=== PATIENT | male | born 1990 | race Caucasian/White ===

== ENCOUNTER 2018-03-26 13:47 | Emergency (ER) | payer MEDICAID, OTHER ==
[2018-03-26] MEDS: NS 1,000 ML IV ×2 (15:09)
[2018-03-26] MEDS: GASTROGRAFIN SOLUTION 30ML PO ×4 (15:13→15:18)
[2018-03-26 15:25] LABS: BASO # 0.1 10^3/uL (0.0-0.2); BASO % 0.4 % (0.0-1.0); EOS # 0.1 10^3/uL (0.0-0.50); EOS % 0.8 % (0.0-3.0); HEMATOCRIT 42.9 % (42.0-52.0); HEMOGLOBIN 14.4 g/dl (13.5-17.5); IMMATURE GRANULOCYTE % 0.3 % (0-3.0); LYMPH # 1.1 10^3/uL (1.5-6.5); LYMPH % 8.2 % (24.0-44.0); MEAN CORPUSCULAR HEMOGLOBIN 30.1 pg (27.0-33.0); MEAN CORPUSCULAR HGB CONC 33.6 g/dl (32.0-36.5); MEAN CORPUSCULAR VOLUME 89.6 fl (80.0-96.0); MONO # 0.8 10^3/uL (0.0-0.8); MONO % 5.4 % (0.0-5.0); NEUTROPHILS # 11.8 10^3/uL (1.8-7.7); NEUTROPHILS % 84.9 % (36.0-66.0); PLATELET COUNT, AUTOMATED 285 10^3/uL (150-450); RED BLOOD COUNT 4.79 10^6/uL (4.30-6.10); RED CELL DISTRIBUTION WIDTH 11.3 % (11.5-14.5); WHITE BLOOD COUNT 13.9 10^3/uL (4.0-10.0)
[2018-03-26 15:31] LABS: KETONE, URINE AUTO RFX TRACE mg/dL (NEGATIVE); LEUKOCYTE ESTERASE UR AUTO RFX NEGATIVE (NEGATIVE); MUCUS, URINE RFX LARGE (NEGATIVE); NITRITE, URINE AUTO RFX NEGATIVE (NEGATIVE); RBC, URINE AUTO RFX 1 /HPF (0-3); SQUAM EPITHELIAL CELL UR AURFX 2 /HPF (0-6); WBC, URINE AUTO RFX 3 /HPF (0-3)
[2018-03-26] MEDS ORDERED: ISOVUE-370 76% 100ML VIAL (Q9967) As Ordered ×2 (15:45)
[2018-03-26 15:50] LABS: ALBUMIN 4.4 GM/DL (3.2-5.2); ALBUMIN/GLOBULIN RATIO 1.07 (1.00-1.93); ALKALINE PHOSPHATASE 65 U/L (45-117); ALT/SGPT 47 U/L (12-78); AMYLASE 74 U/L (25-115); ANION GAP 7 MEQ/L (8-16); AST/SGOT 16 U/L (7-37); BILIRUBIN,DIRECT 0.1 MG/DL (0.0-0.2); BILIRUBIN,TOTAL 0.5 MG/DL (0.2-1.0); BLOOD UREA NITROGEN 16 MG/DL (7-18); CALCIUM LEVEL 9.5 MG/DL (8.5-10.1); CARBON DIOXIDE LEVEL 26 MEQ/L (21-32); CHLORIDE LEVEL 105 MEQ/L (98-107); CREATININE FOR GFR 0.97 MG/DL (0.70-1.30); GLOMERULAR FILTRATION RATE > 60.0 (>60); GLUCOSE, FASTING 93 MG/DL (70-100); LIPASE 111 U/L (73-393); POTASSIUM SERUM 3.9 MEQ/L (3.5-5.1); SODIUM LEVEL 138 MEQ/L (136-145); TOTAL PROTEIN 8.5 GM/DL (6.4-8.2)
== END 2018-03-26 18:41 | disposition home or self-care (01) ==
LOC: M ED 13:47
DX: K59.00 Constipation, unspecified (principal); F31.9 Bipolar disorder, unspecified; F90.9 Attention-deficit hyperactivity disorder, unspecified type; Z79.899 Other long term (current) drug therapy
CPT/HCPCS: Q9963

== ENCOUNTER 2018-04-05 15:34 | Inpatient (IN) | payer OTHER, MEDICAID, SELFPAY ==
[2018-04-05 17:00] LABS: APPEARANCE, URINE CLEAR (CLEAR); BACTERIA, URINE AUTO NEGATIVE (NEGATIVE); BILIRUBIN, URINE AUTO NEGATIVE (NEGATIVE); BLOOD, URINE BLOOD NEGATIVE (NEGATIVE); COLOR, URINE YELLOW (YELLOW); GLUCOSE, URINE (UA) AUTO NEGATIVE (NEGATIVE); KETONE, URINE AUTO 1+ mg/dL (NEGATIVE); LEUKOCYTE ESTERASE, URINE AUTO NEGATIVE (NEGATIVE); MUCUS, URINE SMALL (NEGATIVE); NITRITE, URINE AUTO NEGATIVE (NEGATIVE); PROTEIN, URINE AUTO NEGATIVE (NEGATIVE); RBC, URINE AUTO 1 /HPF (0-3); SPECIFIC GRAVITY URINE AUTO 1.009 (1.002-1.035); SQUAMOUS EPITHELIAL CELL UR AU 0 /HPF (0-6); UROBILINOGEN, URINE AUTO 0.2 mg/dL (0.0-2.0); WBC, URINE AUTO 1 /HPF (0-3)
[2018-04-05 17:07] LABS: ALBUMIN 4.2 GM/DL (3.2-5.2); ALBUMIN/GLOBULIN RATIO 1.14 (1.00-1.93); ALKALINE PHOSPHATASE 50 U/L (45-117); ALT/SGPT 37 U/L (12-78); ANION GAP 10 MEQ/L (8-16); AST/SGOT 33 U/L (7-37); BILIRUBIN,DIRECT < 0.1 MG/DL (0.0-0.2); BILIRUBIN,TOTAL 0.6 MG/DL (0.2-1.0); BLOOD UREA NITROGEN 6 MG/DL (7-18); CALCIUM LEVEL 9.3 MG/DL (8.5-10.1); CARBON DIOXIDE LEVEL 21 MEQ/L (21-32); CHLORIDE LEVEL 108 MEQ/L (98-107); CPK CREATINE PHOSPHOKINASE 88 U/L (39-308); CREATININE FOR GFR 0.79 MG/DL (0.70-1.30); GLOMERULAR FILTRATION RATE > 60.0 (>60); GLUCOSE, FASTING 110 MG/DL (70-100); POTASSIUM SERUM 4.5 MEQ/L (3.5-5.1); SALICYLATE LEVEL < 1.7 MG/DL (5.0-30.0); SODIUM LEVEL 139 MEQ/L (136-145); TOTAL PROTEIN 7.9 GM/DL (6.4-8.2); TROPONIN I < 0.02 NG/ML (< 0.10)
[2018-04-05 17:09] LABS: AMPHETAMINES LEVEL URINE NEGATIVE (NEGATIVE); BARBITURATES URINE NEGATIVE (NEGATIVE); BENZODIAZEPINES URINE NEGATIVE (NEGATIVE); CANNABINOIDS URINE NEGATIVE (NEGATIVE); COCAINE METABOLITE URINE NEGATIVE (NEGATIVE); METHADONE URINE NEGATIVE (NEGATIVE); OPIATES URINE NEGATIVE (NEGATIVE); PHENCYCLIDINE URINE NEGATIVE (NEGATIVE)
[2018-04-05 17:13] LABS: CK-MB VALUE MASS < 1.0 NG/ML (<3.6); MB/CK RELATIVE INDEX 1.13 (< OR =4)
[2018-04-05 17:16] LABS: ACETAMINOPHEN LEVEL < 2.0 UG/ML (10.0-30.0); ETHYL ALCOHOL (ETHANOL) < 0.003 % (0.000-0.010)
[2018-04-05 17:24] LABS: BASO % 0.4 % (0.0-1.0); EOS # 0.1 10^3/uL (0.0-0.50); EOS % 0.9 % (0.0-3.0); HEMATOCRIT 39.5 % (42.0-52.0); HEMOGLOBIN 13.3 g/dl (13.5-17.5); IMMATURE GRANULOCYTE % 0.6 % (0-3.0); LYMPH # 1.1 10^3/uL (1.5-6.5); LYMPH % 11.8 % (24.0-44.0); MEAN CORPUSCULAR HEMOGLOBIN 30.4 pg (27.0-33.0); MEAN CORPUSCULAR HGB CONC 33.7 g/dl (32.0-36.5); MEAN CORPUSCULAR VOLUME 90.2 fl (80.0-96.0); MONO # 0.5 10^3/uL (0.0-0.8); MONO % 5.4 % (0.0-5.0); NEUTROPHILS # 7.3 10^3/uL (1.8-7.7); NEUTROPHILS % 80.9 % (36.0-66.0); PLATELET COUNT, AUTOMATED 338 10^3/uL (150-450); RED BLOOD COUNT 4.38 10^6/uL (4.30-6.10); RED CELL DISTRIBUTION WIDTH 11.7 % (11.5-14.5); WHITE BLOOD COUNT 9.1 10^3/uL (4.0-10.0)
[2018-04-05] MEDS: NS 1,000 ML IV (17:49)
[2018-04-05 18:11] LABS: LITHIUM LEVEL 0.46 MEQ/L (0.60-1.20)
[2018-04-06] MEDS: LITHIUM CARBONATE 450 MG **CR** TAB PO ×2 (08:29→21:00)
[2018-04-06] MEDS ORDERED: LITHIUM CARBONATE 150 MG CAP PO (09:00)
[2018-04-06] MEDS: SPIRONOLACTONE 50 MG TAB PO ×2 (11:05→21:00)
[2018-04-06] MEDS: OLANZapine ORAL DISINTEGRATING TAB 5MG PO ×2 (11:21→21:00)
[2018-04-06] MEDS: QUEtiapine FUMARATE 50 MG TAB PO (21:00)
[2018-04-06] MEDS: ESCITALOPRAM OXALATE 5MG TABLET (LEXAPRO) PO (21:30)
[2018-04-06] MEDS: FINASTERIDE 5 MG TAB PO (21:30)
[2018-04-06] MEDS: ESTRADIOL 1 MG TAB PO (21:31)
[2018-04-07] MEDS: LITHIUM CARBONATE 450 MG **CR** TAB PO ×2 (09:00→21:09)
[2018-04-07] MEDS: OLANZapine ORAL DISINTEGRATING TAB 5MG PO ×5 (09:00→21:54)
[2018-04-07] MEDS: SPIRONOLACTONE 50 MG TAB PO ×2 (09:14→21:10)
[2018-04-07] MEDS: MAALOX 30 ML SUSP *UDC PO (10:12)
[2018-04-07 10:37] LABS: HEMATOCRIT 40.5 % (42.0-52.0); HEMOGLOBIN 13.8 g/dl (13.5-17.5); MEAN CORPUSCULAR HEMOGLOBIN 30.7 pg (27.0-33.0); MEAN CORPUSCULAR HGB CONC 34.1 g/dl (32.0-36.5); PLATELET COUNT, AUTOMATED 333 10^3/uL (150-450); RED CELL DISTRIBUTION WIDTH 11.8 % (11.5-14.5); WHITE BLOOD COUNT 10.8 10^3/uL (4.0-10.0)
[2018-04-07 11:07] LABS: ALBUMIN 4.2 GM/DL (3.2-5.2); ALBUMIN/GLOBULIN RATIO 1.24 (1.00-1.93); ALKALINE PHOSPHATASE 56 U/L (45-117); ALT/SGPT 59 U/L (12-78); ANION GAP 11 MEQ/L (8-16); AST/SGOT 28 U/L (7-37); BILIRUBIN,TOTAL 0.5 MG/DL (0.2-1.0); BLOOD UREA NITROGEN 8 MG/DL (7-18); CALCIUM LEVEL 9.4 MG/DL (8.5-10.1); CARBON DIOXIDE LEVEL 25 MEQ/L (21-32); CHLORIDE LEVEL 107 MEQ/L (98-107); CREATININE FOR GFR 0.73 MG/DL (0.70-1.30); GLOMERULAR FILTRATION RATE > 60.0 (>60); GLUCOSE, FASTING 90 MG/DL (70-100); POTASSIUM SERUM 3.7 MEQ/L (3.5-5.1); SODIUM LEVEL 143 MEQ/L (136-145); TOTAL PROTEIN 7.6 GM/DL (6.4-8.2)
[2018-04-07 11:09] LABS: CK-MB VALUE MASS < 1.0 NG/ML (<3.6); CPK CREATINE PHOSPHOKINASE 45 U/L (39-308); MB/CK RELATIVE INDEX 2.22 (< OR =4); TROPONIN I < 0.02 NG/ML (< 0.10)
[2018-04-07] MEDS: ESCITALOPRAM OXALATE 5MG TABLET (LEXAPRO) PO (21:08)
[2018-04-07] MEDS: ESTRADIOL 1 MG TAB PO (21:09)
[2018-04-07] MEDS: QUEtiapine FUMARATE 50 MG TAB PO (21:10)
[2018-04-07] MEDS: FINASTERIDE 5 MG TAB PO (21:10)
[2018-04-08] MEDS: ACETAMINOPHEN TAB 650MG DOSE (2X325MG) PO (00:35)
[2018-04-08] MEDS: traZODone 50 MG TAB PO (00:35)
[2018-04-08 07:56] LABS: HEMATOCRIT 40.4 % (42.0-52.0); HEMOGLOBIN 13.3 g/dl (13.5-17.5); MEAN CORPUSCULAR HEMOGLOBIN 29.7 pg (27.0-33.0); MEAN CORPUSCULAR HGB CONC 32.9 g/dl (32.0-36.5); MEAN CORPUSCULAR VOLUME 90.2 fl (80.0-96.0); PLATELET COUNT, AUTOMATED 301 10^3/uL (150-450); RED BLOOD COUNT 4.48 10^6/uL (4.30-6.10); RED CELL DISTRIBUTION WIDTH 11.8 % (11.5-14.5); WHITE BLOOD COUNT 7.5 10^3/uL (4.0-10.0)
[2018-04-08] MEDS: SPIRONOLACTONE 50 MG TAB PO ×2 (09:15→21:33)
[2018-04-08] MEDS: LITHIUM CARBONATE 450 MG **CR** TAB PO ×2 (09:15→21:33)
[2018-04-08] MEDS: OLANZapine ORAL DISINTEGRATING TAB 5MG PO ×4 (09:15→21:33)
[2018-04-08] MEDS: QUEtiapine FUMARATE 50 MG TAB PO (21:33)
[2018-04-08] MEDS: ESCITALOPRAM OXALATE 5MG TABLET (LEXAPRO) PO (21:33)
[2018-04-08] MEDS: FINASTERIDE 5 MG TAB PO (21:33)
[2018-04-08] MEDS: ESTRADIOL 1 MG TAB PO (21:33)
[2018-04-09] MEDS: OLANZapine ORAL DISINTEGRATING TAB 5MG PO ×4 (08:08→21:00)
[2018-04-09] MEDS: LITHIUM CARBONATE 450 MG **CR** TAB PO ×2 (08:08→21:00)
[2018-04-09] MEDS: SPIRONOLACTONE 50 MG TAB PO ×2 (08:09→21:08)
[2018-04-09] MEDS: QUEtiapine FUMARATE 50 MG TAB PO (21:00)
[2018-04-09] MEDS: ESCITALOPRAM OXALATE 5MG TABLET (LEXAPRO) PO (21:00)
[2018-04-09] MEDS: ESTRADIOL 1 MG TAB PO (21:07)
[2018-04-09] MEDS: FINASTERIDE 5 MG TAB PO (21:07)
[2018-04-10] MEDS: OLANZapine ORAL DISINTEGRATING TAB 5MG PO ×5 (09:00→20:24)
[2018-04-10] MEDS: LITHIUM CARBONATE 450 MG **CR** TAB PO ×2 (09:00→20:20)
[2018-04-10] MEDS: SPIRONOLACTONE 50 MG TAB PO ×2 (09:03→20:21)
[2018-04-10] MEDS: ESCITALOPRAM OXALATE 5MG TABLET (LEXAPRO) PO (20:20)
[2018-04-10] MEDS: QUEtiapine FUMARATE 50 MG TAB PO (20:20)
[2018-04-10] MEDS: ESTRADIOL 1 MG TAB PO (20:20)
[2018-04-10] MEDS: FINASTERIDE 5 MG TAB PO (20:21)
[2018-04-11] MEDS: LITHIUM CARBONATE 450 MG **CR** TAB PO ×2 (08:34→20:13)
[2018-04-11] MEDS: SPIRONOLACTONE 50 MG TAB PO ×2 (08:34→20:14)
[2018-04-11] MEDS: OLANZapine ORAL DISINTEGRATING TAB 5MG PO (08:35)
[2018-04-11] MEDS: ESCITALOPRAM OXALATE 10 MG TAB (LEXAPRO) PO (20:12)
[2018-04-11] MEDS: QUEtiapine FUMARATE 50 MG TAB PO (20:13)
[2018-04-11] MEDS: FINASTERIDE 5 MG TAB PO (20:13)
[2018-04-11] MEDS: ESTRADIOL 1 MG TAB PO (20:14)
[2018-04-12 08:13] LABS: LITHIUM LEVEL 0.59 MEQ/L (0.60-1.20)
[2018-04-12] MEDS: LITHIUM CARBONATE 450 MG **CR** TAB PO ×2 (09:19→20:52)
[2018-04-12] MEDS: SPIRONOLACTONE 50 MG TAB PO ×2 (09:20→20:52)
[2018-04-12] MEDS: ESTRADIOL 1 MG TAB PO (20:51)
[2018-04-12] MEDS: FINASTERIDE 5 MG TAB PO (20:52)
[2018-04-12] MEDS: QUEtiapine FUMARATE 50 MG TAB PO (20:52)
[2018-04-12] MEDS: ESCITALOPRAM OXALATE 10 MG TAB (LEXAPRO) PO (20:52)
[2018-04-13] MEDS: SPIRONOLACTONE 50 MG TAB PO ×2 (09:53→20:56)
[2018-04-13] MEDS: LITHIUM CARBONATE 450 MG **CR** TAB PO (09:53)
[2018-04-13] MEDS: ESCITALOPRAM OXALATE 10 MG TAB (LEXAPRO) PO (20:56)
[2018-04-13] MEDS: ESTRADIOL 1 MG TAB PO (20:56)
[2018-04-13] MEDS: LITHIUM CARBONATE 300 MG **CR** TAB PO (20:57)
[2018-04-13] MEDS: QUEtiapine FUMARATE 200 MG TAB PO (20:57)
[2018-04-13] MEDS: FINASTERIDE 5 MG TAB PO (20:57)
[2018-04-13] MEDS: traZODone 50 MG TAB PO (20:57)
[2018-04-14] MEDS: SPIRONOLACTONE 50 MG TAB PO ×2 (08:52→21:01)
[2018-04-14] MEDS: LITHIUM CARBONATE 300 MG **CR** TAB PO ×2 (08:53→21:01)
[2018-04-14 09:18] LABS: LITHIUM LEVEL 0.86 MEQ/L (0.60-1.20)
[2018-04-14] MEDS: ESCITALOPRAM OXALATE 10 MG TAB (LEXAPRO) PO (21:00)
[2018-04-14] MEDS: QUEtiapine FUMARATE 200 MG TAB PO (21:00)
[2018-04-14] MEDS: ESTRADIOL 1 MG TAB PO (21:01)
[2018-04-14] MEDS: FINASTERIDE 5 MG TAB PO (21:01)
[2018-04-15] MEDS: SPIRONOLACTONE 50 MG TAB PO ×2 (08:19→21:19)
[2018-04-15] MEDS: LITHIUM CARBONATE 300 MG **CR** TAB PO ×2 (08:20→21:19)
[2018-04-15] MEDS: TUBERCULIN PPD 5 UNITS/0.1 ML ID (09:04)
[2018-04-15] MEDS: FINASTERIDE 5 MG TAB PO (21:18)
[2018-04-15] MEDS: QUEtiapine FUMARATE 200 MG TAB PO (21:19)
[2018-04-15] MEDS: ESCITALOPRAM OXALATE 10 MG TAB (LEXAPRO) PO (21:19)
[2018-04-15] MEDS: ESTRADIOL 1 MG TAB PO (21:21)
[2018-04-16] MEDS: SPIRONOLACTONE 50 MG TAB PO ×2 (08:27→20:46)
[2018-04-16] MEDS: LITHIUM CARBONATE 300 MG **CR** TAB PO ×2 (08:27→20:47)
[2018-04-16] MEDS: QUEtiapine FUMARATE 200 MG TAB PO (20:46)
[2018-04-16] MEDS: ESTRADIOL 1 MG TAB PO (20:46)
[2018-04-16] MEDS: FINASTERIDE 5 MG TAB PO (20:46)
[2018-04-16] MEDS: ESCITALOPRAM OXALATE 10 MG TAB (LEXAPRO) PO (20:46)
[2018-04-17] MEDS: LITHIUM CARBONATE 300 MG **CR** TAB PO (09:11)
[2018-04-17] MEDS: SPIRONOLACTONE 50 MG TAB PO (09:12)
[2018-04-17] MEDS: MOM 30ML SUSPENSION UDC PO (09:26)
[2018-04-17] MEDS: PPD DOCUMENTATION ENTRY MISC XX (09:27)
== END 2018-04-17 15:00 | disposition home or self-care (01) | DRG 753 ==
LOC: M PSY 04-09 21:33 → M ED 15:34 → M ED INP 21:00
PROVIDERS: Psychiatry & Neurology Psychiatry
DX: F31.5 Bipolar disorder, current episode depressed, severe, with psychotic features (principal); F64.9 Gender identity disorder, unspecified; Z79.899 Other long term (current) drug therapy; R07.9 Chest pain, unspecified

== ENCOUNTER 2018-04-27 04:44 | Emergency (ER) | payer OTHER ==
[2018-04-27 05:13] LABS: HEMOGLOBIN 12.5 g/dl (13.5-17.5); MEAN CORPUSCULAR HEMOGLOBIN 29.9 pg (27.0-33.0); MEAN CORPUSCULAR HGB CONC 32.9 g/dl (32.0-36.5); MEAN CORPUSCULAR VOLUME 90.9 fl (80.0-96.0); PLATELET COUNT, AUTOMATED 281 10^3/uL (150-450); RED BLOOD COUNT 4.18 10^6/uL (4.30-6.10); RED CELL DISTRIBUTION WIDTH 11.6 % (11.5-14.5); WHITE BLOOD COUNT 12.4 10^3/uL (4.0-10.0)
[2018-04-27 05:55] LABS: ACETAMINOPHEN LEVEL < 2.0 UG/ML (10.0-30.0); ALBUMIN 3.9 GM/DL (3.2-5.2); ALBUMIN/GLOBULIN RATIO 1.26 (1.00-1.93); ALKALINE PHOSPHATASE 58 U/L (45-117); ALT/SGPT 85 U/L (12-78); ANION GAP 10 MEQ/L (8-16); AST/SGOT 24 U/L (7-37); BILIRUBIN,DIRECT 0.2 MG/DL (0.0-0.2); BILIRUBIN,TOTAL 0.6 MG/DL (0.2-1.0); BLOOD UREA NITROGEN 12 MG/DL (7-18); CALCIUM LEVEL 8.6 MG/DL (8.5-10.1); CARBON DIOXIDE LEVEL 23 MEQ/L (21-32); CHLORIDE LEVEL 107 MEQ/L (98-107); CREATININE FOR GFR 0.79 MG/DL (0.70-1.30); ETHYL ALCOHOL (ETHANOL) < 0.003 % (0.000-0.010); GLOMERULAR FILTRATION RATE > 60.0 (>60); GLUCOSE, FASTING 130 MG/DL (70-100); LITHIUM LEVEL 0.35 MEQ/L (0.60-1.20); POTASSIUM SERUM 3.7 MEQ/L (3.5-5.1); SALICYLATE LEVEL 1.8 MG/DL (5.0-30.0); SODIUM LEVEL 140 MEQ/L (136-145)
[2018-04-27 08:20] LABS: AMPHETAMINES LEVEL URINE NEGATIVE (NEGATIVE); BARBITURATES URINE NEGATIVE (NEGATIVE); BENZODIAZEPINES URINE NEGATIVE (NEGATIVE); CANNABINOIDS URINE NEGATIVE (NEGATIVE); COCAINE METABOLITE URINE NEGATIVE (NEGATIVE); METHADONE URINE NEGATIVE (NEGATIVE); OPIATES URINE NEGATIVE (NEGATIVE); PHENCYCLIDINE URINE NEGATIVE (NEGATIVE)
== END 2018-04-27 11:00 | disposition home or self-care (01) ==
LOC: M ED 04:44
DX: R46.89 Other symptoms and signs involving appearance and behavior (principal); F31.5 Bipolar disorder, current episode depressed, severe, with psychotic features (principal); F41.9 Anxiety disorder, unspecified; Z79.899 Other long term (current) drug therapy
CPT/HCPCS: 93005

== ENCOUNTER → 2019-09-20 | Outpatient (CLI) | payer OTHER ==
[~2019-09-20] MED LIST: ESCI10TA2; ESCI10TA2 PO; ESTR2TAB2; ESTR2TAB2 PO; FINA5TAB2 PO; LEXA5TAB13 PO; LITH1TAB PO; LITH45TASA; LITH45TASA PO; MIRA3350 PO; QUET100T2; QUET200T2 PO; SERO1TAB PO; SPIR100T3 PO; TRAZ1TAB10 PO
--- NOTE | 2019-09-20 22:24 | ECGEPIP ---
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 No significant change compared with 04/27/2018 Electronically Signed on 09-20-2019 22:24:22 EST by Tj Hatch
== END ==
LOC: M EKG 10:14 → M LAB 10:14
PROVIDERS: ATTEND Nurse Practitioner Psychiatric/Mental Health
DX: F90.0 Attention-deficit hyperactivity disorder, predominantly inattentive type (principal)

== ENCOUNTER → 2021-02-26 | Outpatient (CLI) | payer OTHER ==
[~2021-02-26] MED LIST changes: +ESCI10TA16; +ESCI10TA16 PO; -ESCI10TA2; -ESCI10TA2 PO
[2021-02-26 09:20] LABS: BASO % 0.5 % (0.0-1.0); EOS # 0.2 10^3/uL (0.0-0.5); EOS % 2.4 % (0.0-3.0); HEMATOCRIT 39.1 % (42.0-52.0); HEMOGLOBIN 12.6 g/dl (13.5-17.5); LYMPH # 2.8 10^3/uL (1.5-5.0); LYMPH % 35.6 % (24.0-44.0); MEAN CORPUSCULAR HEMOGLOBIN 29.8 pg (27.0-33.0); MEAN CORPUSCULAR HGB CONC 32.2 g/dl (32.0-36.5); MEAN CORPUSCULAR VOLUME 92.4 fl (80.0-96.0); MONO # 0.7 10^3/uL (0.0-0.8); NEUTROPHILS # 4.1 10^3/uL (1.5-8.5); NEUTROPHILS % 52.1 % (36.0-66.0); PLATELET COUNT, AUTOMATED 294 10^3/uL (150-450); RED BLOOD COUNT 4.23 10^6/uL (4.30-6.10); WHITE BLOOD COUNT 7.9 10^3/uL (4.0-10.0)
[2021-02-26 09:53] LABS: ALBUMIN 3.8 GM/DL (3.2-5.2); ALT/SGPT 36 U/L (12-78); BILIRUBIN,TOTAL 0.7 MG/DL (0.2-1.0); BLOOD UREA NITROGEN 14 MG/DL (7-18); CARBON DIOXIDE LEVEL 26 MEQ/L (21-32); CHLORIDE LEVEL 106 MEQ/L (98-107); CHOLESTEROL LEVEL 195 MG/DL (<200); CHOLESTEROL RISK RATIO 3.545 (<5); CREATININE FOR GFR 0.74 MG/DL (0.70-1.30); GLOMERULAR FILTRATION RATE > 60.0 (>60); GLUCOSE, FASTING 82 MG/DL (70-100); HDL CHOLESTEROL 55 MG/DL (>40); LDL CHOLESTEROL 124 MG/DL (<100); NON-HDL-C 140 MG/DL; POTASSIUM SERUM 4.2 MEQ/L (3.5-5.1); SODIUM LEVEL 139 MEQ/L (136-145); TOTAL PROTEIN 7.2 GM/DL (6.4-8.2); TRIGLYCERIDES LEVEL 78 MG/DL (<150)
[2021-02-26 09:59] LABS: HEMOGLOBIN A1c 5.1 %
== END ==
LOC: M LAB 08:32
PROVIDERS: ATTEND Nurse Practitioner Psychiatric/Mental Health
DX: F25.0 Schizoaffective disorder, bipolar type (principal)

== ENCOUNTER 2021-03-26 12:08 | Emergency (ER) | payer OTHER ==
[~2021-03-26] VITALS: Ht 175.3 cm; Wt 85.2 kg
[2021-03-26] MEDS ORDERED: SPIR100T3 PO ×2 (12:17→21:35)
[2021-03-26] MEDS ORDERED: ZYPR20TA PO (12:17)
[2021-03-26] MEDS ORDERED: ATOM25CA2 PO (12:17)
[2021-03-26] MEDS ORDERED: RITA20TA PO (12:17)
[2021-03-26] MEDS ORDERED: CYMB60CA3 PO ×2 (12:17→21:35)
[2021-03-26] MEDS ORDERED: RITA10TA PO (12:17)
[2021-03-26 13:38] LABS: HEMATOCRIT 39.9 % (42.0-52.0); HEMOGLOBIN 13.1 g/dl (13.5-17.5); MEAN CORPUSCULAR HGB CONC 32.8 g/dl (32.0-36.5); MEAN CORPUSCULAR VOLUME 91.3 fl (80.0-96.0); PLATELET COUNT, AUTOMATED 310 10^3/uL (150-450); RED BLOOD COUNT 4.37 10^6/uL (4.30-6.10)
[2021-03-26 14:12] LABS: ALBUMIN 3.6 GM/DL (3.2-5.2); ALT/SGPT 44 U/L (12-78); BILIRUBIN,DIRECT 0.2 MG/DL (0.0-0.2); BILIRUBIN,TOTAL 0.6 MG/DL (0.2-1.0); BLOOD UREA NITROGEN 12 MG/DL (7-18); CARBON DIOXIDE LEVEL 28 MEQ/L (21-32); CHLORIDE LEVEL 105 MEQ/L (98-107); CREATININE FOR GFR 0.79 MG/DL (0.70-1.30); GLOMERULAR FILTRATION RATE > 60.0 (>60); GLUCOSE, FASTING 111 MG/DL (70-100); POTASSIUM SERUM 3.7 MEQ/L (3.5-5.1); SODIUM LEVEL 137 MEQ/L (136-145); TOTAL PROTEIN 7.4 GM/DL (6.4-8.2)
[2021-03-26 14:13] LABS: ACETAMINOPHEN LEVEL < 2.0 UG/ML (10.0-30.0); ETHYL ALCOHOL (ETHANOL) < 0.003 % (0.000-0.010); SALICYLATE LEVEL < 1.7 MG/DL (5.0-30.0); THYROID STIMULATING HORMONE 0.513 uIU/ML (0.358-3.740)
[2021-03-26 14:32] LABS: AMPHETAMINES LEVEL URINE NEGATIVE (NEGATIVE); BARBITURATES URINE NEGATIVE (NEGATIVE); BENZODIAZEPINES URINE NEGATIVE (NEGATIVE); CANNABINOIDS URINE POSITIVE (NEGATIVE); COCAINE METABOLITE URINE NEGATIVE (NEGATIVE); METHADONE URINE NEGATIVE (NEGATIVE); OPIATES URINE NEGATIVE (NEGATIVE); PHENCYCLIDINE URINE NEGATIVE (NEGATIVE)
--- NOTE | 2021-03-26 16:10 | MHIPNPDOC ---
[facility] Progress Note Progress Note DATE OF SERVICE: 03/26/21 Communicated with PSA, patient meets criteria for inpatient admission. Was presented that the patient is a 30-year-old male outpatients who presented with SI and thoughts of shooting himself. He is cutting and has cuts on right arm, as a TLS patient with a history of schizophrenia last time admission was in 2018. Vital Signs Vital Signs Date Time Temp Pulse Resp B/P (MAP) Pulse Ox O2 Delivery O2 Flow Rate FiO2 03/26/21 12:09 98.3 95 17 150/82 (104) 96 Room Air Laboratory Data 24H Labs Laboratory Tests 2 03/26/21 13:00: Nucleated Red Blood Cells % (auto) 0.0, Anion Gap 4L, Glomerular Filtration Rate > 60.0, Calcium Level 9.0, Total Bilirubin 0.6, Direct Bilirubin 0.2, Aspartate Amino Transf (AST/SGOT) 21, Alanine Aminotransferase (ALT/SGPT) 44, Alkaline Phosphatase 62, Total Protein 7.4, Albumin 3.6, Albumin/Globulin Ratio 0.9, Thyroid Stimulating Hormone (TSH) 0.513, Salicylates Level < 1.7L, Urine Opiates Screen NEGATIVE, Urine Methadone Screen NEGATIVE, Acetaminophen Level < 2.0L, Urine Barbiturates Screen NEGATIVE, Urine Phencyclidine Screen NEGATIVE, Urine Amphetamines Screen NEGATIVE, Urine Benzodiazepines Screen NEGATIVE, Urine Cocaine Metabolite Screen NEGATIVE, Urine Cannabinoids Screen POSITIVEH, Ethyl Alcohol Level < 0.003 CBC/BMP Laboratory Tests 03/26/21 13:00 Allergies Coded Allergies: No Known Allergies (Unverified , 03/26/18) CASSIE MAYNARD MD Mar 26, 2021 16:10
--- NOTE | 2021-03-26 19:08 | ECGEPIP ---
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
[2021-03-26] MEDS ORDERED: METH20TA29 PO (21:35)
[2021-03-26] MEDS ORDERED: OLAN20TA14 PO (21:35)
[2021-03-26] MEDS ORDERED: ATOM25CA PO (21:35)
[2021-03-26] MEDS ORDERED: METH-1022 PO (21:35)
[2021-03-26] MEDS ORDERED: HOME MED LIST COMPLETE! XX SCH (21:40)
[2021-03-26] MEDS ORDERED: OLANZapine 10 MG TAB PO ONE (22:00)
[2021-03-26] MEDS ORDERED: FINASTERIDE 5 MG TAB PO ONE (22:00)
[2021-03-26] MEDS ORDERED: estradioL 1 MG TAB PO ONE ×2 (22:00→23:00)
[2021-03-26] MEDS ORDERED: SPIRONOLACTONE 50 MG TAB PO SCH (22:00)
[2021-03-26] MEDS ORDERED: estradioL 1 MG TAB PO SCH (22:25)
[2021-03-26] MEDS ORDERED: SPIRONOLACTONE 50 MG TAB PO ONE (23:00)
[2021-03-27 01:08] LABS: RSV AMPLIFICATION NEGATIVE (NEGATIVE)
[2021-03-27 15:08] VITALS: BP 120/72
== END 2021-03-27 15:10 | disposition short-term general hospital (02) ==
LOC: M ED 12:08
DX: R45.851 Suicidal ideations (principal); F32.9 Major depressive disorder, single episode, unspecified; F12.10 Cannabis abuse, uncomplicated; F17.210 Nicotine dependence, cigarettes, uncomplicated

== ENCOUNTER 2021-04-27 22:30 | Emergency (ER) | payer OTHER ==
[~2021-04-27] VITALS: Ht 175.3 cm; Wt 84.5 kg
[2021-04-27 22:30] VITALS: BP 128/68
[~2021-04-27 22:30] MED LIST changes: +ATOM25CA PO; +ATOM25CA2 PO; +CYMB60CA3 PO; +METH-1022 PO; +METH20TA29 PO; +OLAN20TA14 PO; +RITA10TA PO; +RITA20TA PO; +ZYPR20TA PO
[2021-04-27] MEDS ORDERED: LITH300C PO (22:35)
== END 2021-04-28 00:19 | disposition left against medical advice (07) ==
LOC: M ED 22:30
DX: Z53.21 Procedure and treatment not carried out due to patient leaving prior to being seen by health care provider (principal)

== ENCOUNTER 2021-09-26 14:42 | Inpatient (IN) | payer MEDICAID, OTHER ==
[~2021-09-26] VITALS: Ht 175.3 cm; Wt 82.2 kg
[~2021-09-26 14:42] MED LIST changes: -CYMB60CA3 PO; +CYMB60CA4 PO; -ESTR2TAB2; -ESTR2TAB2 PO; +ESTR2TAB3; +ESTR2TAB3 PO; +LITH300C PO
[2021-09-26] MEDS ORDERED: BOOSTRIX/ADACEL VACCINE (DIPHTH/PERTUSS/ACELL/TETANUS) 0.5ML SYR IM ONE (16:00)
[2021-09-26 16:50] LABS: HEMATOCRIT 43.4 % (42.0-52.0); HEMOGLOBIN 14.5 g/dl (13.5-17.5); MEAN CORPUSCULAR HEMOGLOBIN 30.2 pg (27.0-33.0); MEAN CORPUSCULAR HGB CONC 33.4 g/dl (32.0-36.5); MEAN CORPUSCULAR VOLUME 90.4 fl (80.0-96.0); PLATELET COUNT, AUTOMATED 410 10^3/uL (150-450); WHITE BLOOD COUNT 11.1 10^3/uL (4.0-10.0)
[2021-09-26] MEDS ORDERED: ESTR25VL SC (16:53)
[2021-09-26] MEDS ORDERED: OLAN1TAB20 PO (16:53)
[2021-09-26] MEDS ORDERED: LITH45TASA PO (16:53)
[2021-09-26] MEDS ORDERED: ATOM40CA9 PO (16:53)
[2021-09-26] MEDS ORDERED: HOME MED LIST COMPLETE! XX SCH (17:00)
[2021-09-26 17:11] LABS: AMPHETAMINES LEVEL URINE NEGATIVE (NEGATIVE); BARBITURATES URINE NEGATIVE (NEGATIVE); BENZODIAZEPINES URINE NEGATIVE (NEGATIVE); CANNABINOIDS URINE NEGATIVE (NEGATIVE); COCAINE METABOLITE URINE NEGATIVE (NEGATIVE); METHADONE URINE NEGATIVE (NEGATIVE); OPIATES URINE NEGATIVE (NEGATIVE); PHENCYCLIDINE URINE NEGATIVE (NEGATIVE)
[2021-09-26 17:19] LABS: RSV AMPLIFICATION NEGATIVE (NEGATIVE)
[2021-09-26 17:31] LABS: ACETAMINOPHEN LEVEL < 2.0 UG/ML (10.0-30.0); ALBUMIN 4.3 GM/DL (3.2-5.2); ALT/SGPT 19 U/L (12-78); BILIRUBIN,DIRECT 0.2 MG/DL (0.0-0.2); BILIRUBIN,TOTAL 0.7 MG/DL (0.2-1.0); BLOOD UREA NITROGEN 11 MG/DL (7-18); CALCIUM LEVEL 9.9 MG/DL (8.5-10.1); CARBON DIOXIDE LEVEL 27 MEQ/L (21-32); CHLORIDE LEVEL 103 MEQ/L (98-107); ETHYL ALCOHOL (ETHANOL) < 0.003 % (0.000-0.010); GLOMERULAR FILTRATION RATE > 60.0 (>60); GLUCOSE, FASTING 93 MG/DL (70-100); POTASSIUM SERUM 3.8 MEQ/L (3.5-5.1); SALICYLATE LEVEL < 1.7 MG/DL (5.0-30.0); SODIUM LEVEL 136 MEQ/L (136-145); THYROID STIMULATING HORMONE 0.646 uIU/ML (0.358-3.740); TOTAL PROTEIN 7.9 GM/DL (6.4-8.2)
[2021-09-26] MEDS ORDERED: MOM 30ML SUSPENSION UDC PO PRN (20:40)
[2021-09-26] MEDS ORDERED: MAALOX 30 ML SUSP *UDC PO PRN (20:40)
[2021-09-26] MEDS ORDERED: OLANZapine ORAL DISINTEGRATING TAB 5MG PO PRN (20:40)
[2021-09-26] MEDS ORDERED: FINASTERIDE 5 MG TAB PO ONE (20:55)
[2021-09-26] MEDS ORDERED: LITHIUM CARBONATE 450 MG **CR** TAB PO ONE (21:10)
[2021-09-26 21:40] VITALS: BP 129/86
[2021-09-27] MEDS: LITHIUM CARBONATE 450 MG **CR** TAB PO SCH ×2 (09:07→20:28)
[2021-09-27] MEDS: FINASTERIDE 5 MG TAB PO SCH (20:28)
[2021-09-27] MEDS ORDERED: LORazepam 1 MG TAB PO SCH (21:00)
[2021-09-28 06:10] VITALS: BP 156/88
[2021-09-28 07:26] LABS: CHOLESTEROL RISK RATIO 3.829 (<5)
[2021-09-28] MEDS: LITHIUM CARBONATE 450 MG **CR** TAB PO SCH ×2 (09:00→20:52)
[2021-09-28] MEDS: SPIRONOLACTONE 50 MG TAB PO SCH (09:00)
[2021-09-28 16:39] VITALS: BP 127/83
[2021-09-28] MEDS: FINASTERIDE 5 MG TAB PO SCH (20:52)
[2021-09-28] MEDS ORDERED: LORazepam 1 MG TAB PO SCH (21:00)
[2021-09-29 06:08] VITALS: BP 112/69
[2021-09-29] MEDS: SERTRALINE HCL 50 MG TAB PO SCH (08:36)
[2021-09-29] MEDS: SPIRONOLACTONE 50 MG TAB PO SCH (08:36)
[2021-09-29] MEDS: LITHIUM CARBONATE 450 MG **CR** TAB PO SCH ×2 (08:36→21:00)
[2021-09-29 16:12] VITALS: BP 130/80
[2021-09-29] MEDS: FINASTERIDE 5 MG TAB PO SCH (21:00)
[2021-09-30 05:56] VITALS: BP 111/72
[2021-09-30] MEDS: LITHIUM CARBONATE 450 MG **CR** TAB PO SCH ×2 (09:27→21:00)
[2021-09-30] MEDS: SPIRONOLACTONE 50 MG TAB PO SCH (09:27)
[2021-09-30] MEDS: SERTRALINE HCL 50 MG TAB PO SCH (09:27)
[2021-09-30 16:28] VITALS: BP 126/75
[2021-09-30] MEDS: FINASTERIDE 5 MG TAB PO SCH (21:00)
[2021-10-01 06:31] VITALS: BP 129/82
[2021-10-01] MEDS: SERTRALINE HCL 50 MG TAB PO SCH (09:00)
[2021-10-01] MEDS: SPIRONOLACTONE 50 MG TAB PO SCH (09:00)
[2021-10-01] MEDS: LITHIUM CARBONATE 450 MG **CR** TAB PO SCH ×2 (09:00→21:05)
[2021-10-01] MEDS ORDERED: BENZTROPINE 1 MG TAB PO SCH (10:10)
[2021-10-01] MEDS ORDERED: hydrOXYzine 50 MG TAB PO PRN (10:10)
[2021-10-01 19:22] VITALS: BP 150/84
[2021-10-01] MEDS: FINASTERIDE 5 MG TAB PO SCH (21:05)
[2021-10-01] MEDS: traZODone 50 MG TAB PO PRN (21:05)
[2021-10-02 06:24] VITALS: BP 132/89
[2021-10-02] MEDS: SERTRALINE HCL 50 MG TAB PO SCH (08:58)
[2021-10-02] MEDS: LITHIUM CARBONATE 450 MG **CR** TAB PO SCH ×2 (08:58→20:37)
[2021-10-02] MEDS: SPIRONOLACTONE 50 MG TAB PO SCH (08:58)
[2021-10-02 10:24] VITALS: BP 132/89
[2021-10-02 17:48] VITALS: BP 134/82
[2021-10-02] MEDS ORDERED: LURASIDONE HCL 40MG TAB (LATUDA) PO SCH (18:00)
[2021-10-02] MEDS: LURASIDONE 20 MG TAB (LATUDA) PO SCH (18:19)
[2021-10-02] MEDS: FINASTERIDE 5 MG TAB PO SCH (20:37)
[2021-10-03 06:11] VITALS: BP 134/87
[2021-10-03] MEDS: LITHIUM CARBONATE 450 MG **CR** TAB PO SCH ×2 (09:04→21:00)
[2021-10-03] MEDS: SPIRONOLACTONE 50 MG TAB PO SCH (09:04)
[2021-10-03 16:50] VITALS: BP 137/98
[2021-10-03] MEDS: LURASIDONE 20 MG TAB (LATUDA) PO SCH (18:06)
[2021-10-03] MEDS: FINASTERIDE 5 MG TAB PO SCH (21:00)
[2021-10-04] MEDS: SPIRONOLACTONE 50 MG TAB PO SCH ×2 (08:41→09:04)
[2021-10-04] MEDS: LITHIUM CARBONATE 450 MG **CR** TAB PO SCH ×3 (08:41→21:11)
[2021-10-04] MEDS: ACETAMINOPHEN TAB 650MG DOSE (2X325MG) PO PRN (09:11)
[2021-10-04 16:15] VITALS: BP 137/96
[2021-10-04] MEDS: LURASIDONE 20 MG TAB (LATUDA) PO SCH (18:22)
[2021-10-04] MEDS: traZODone 50 MG TAB PO PRN (21:11)
[2021-10-04] MEDS: FINASTERIDE 5 MG TAB PO SCH (21:11)
[2021-10-05 07:08] VITALS: BP 133/82
[2021-10-05] MEDS: SPIRONOLACTONE 50 MG TAB PO SCH (09:32)
[2021-10-05] MEDS: LITHIUM CARBONATE 450 MG **CR** TAB PO SCH ×2 (09:32→21:18)
[2021-10-05] MEDS: ACETAMINOPHEN TAB 650MG DOSE (2X325MG) PO PRN (10:16)
[2021-10-05] MEDS: LURASIDONE 20 MG TAB (LATUDA) PO SCH (17:02)
[2021-10-05 18:24] VITALS: BP 142/82
[2021-10-05] MEDS: FINASTERIDE 5 MG TAB PO SCH (21:17)
[2021-10-05] MEDS: traZODone 50 MG TAB PO PRN (21:17)
[2021-10-06 06:39] VITALS: BP 133/93
[2021-10-06] MEDS: SPIRONOLACTONE 50 MG TAB PO SCH (09:09)
[2021-10-06] MEDS: LITHIUM CARBONATE 450 MG **CR** TAB PO SCH ×2 (09:09→22:56)
[2021-10-06] MEDS: LURASIDONE HCL 40MG TAB (LATUDA) PO SCH (17:10)
[2021-10-06 17:54] VITALS: BP 138/88
[2021-10-06] MEDS: FINASTERIDE 5 MG TAB PO SCH (22:56)
[2021-10-07 07:07] VITALS: BP 150/97
[2021-10-07] MEDS: SPIRONOLACTONE 50 MG TAB PO SCH (08:53)
[2021-10-07] MEDS: LITHIUM CARBONATE 450 MG **CR** TAB PO SCH ×2 (08:53→21:28)
[2021-10-07] MEDS: LURASIDONE HCL 40MG TAB (LATUDA) PO SCH (18:00)
[2021-10-07 18:50] VITALS: BP 138/88
[2021-10-07] MEDS: FINASTERIDE 5 MG TAB PO SCH (21:28)
[2021-10-08 06:24] VITALS: BP 122/73
[2021-10-08] MEDS: LITHIUM CARBONATE 450 MG **CR** TAB PO SCH ×3 (09:00→21:47)
[2021-10-08] MEDS: SPIRONOLACTONE 50 MG TAB PO SCH ×2 (09:00→10:31)
[2021-10-08] MEDS: LURASIDONE HCL 40MG TAB (LATUDA) PO SCH (17:23)
[2021-10-08] MEDS: FINASTERIDE 5 MG TAB PO SCH (21:47)
[2021-10-09 06:29] VITALS: BP 141/85
[2021-10-09] MEDS ORDERED: LATU40TA2 PO (08:17)
[2021-10-09] MEDS: SPIRONOLACTONE 50 MG TAB PO SCH (09:45)
[2021-10-09] MEDS: LITHIUM CARBONATE 450 MG **CR** TAB PO SCH (09:45)
== END 2021-10-09 13:24 | disposition home or self-care (01) | DRG 753 ==
LOC: M ED 14:42 → M ED INP 20:36 → M PSY 21:35
PROVIDERS: ADMIT Student in an Organized Health Care Education/Training Program; ATTEND Psychiatry & Neurology Psychiatry
DX: F31.9 Bipolar disorder, unspecified (principal); F60.3 Borderline personality disorder; Z91.14 Patient's other noncompliance with medication regimen; F90.9 Attention-deficit hyperactivity disorder, unspecified type; G40.909 Epilepsy, unspecified, not intractable, without status epilepticus; Z62.811 Personal history of psychological abuse in childhood; Z20.822 Contact with and (suspected) exposure to COVID-19; F17.200 Nicotine dependence, unspecified, uncomplicated; F10.10 Alcohol abuse, uncomplicated; R45.851 Suicidal ideations; Z79.899 Other long term (current) drug therapy; F64.0 Transsexualism; Z60.9 Problem related to social environment, unspecified; Z91.52 Personal history of nonsuicidal self-harm

== ENCOUNTER 2021-12-09 19:54 | Emergency (ER) | payer MEDICAID, OTHER ==
[~2021-12-09] VITALS: Ht 175.3 cm; Wt 82.2 kg
[~2021-12-09 19:54] MED LIST changes: +ATOM40CA9 PO; +ESTR25VL SC; +LATU40TA2 PO; +OLAN1TAB20 PO
[2021-12-09] MEDS ORDERED: ESTR25VL IM (21:07)
[2021-12-09] MEDS ORDERED: VITA100093 PO (21:12)
[2021-12-09] MEDS ORDERED: LORA1TAB4 PO (21:12)
[2021-12-09] MEDS ORDERED: FLON1SPR NARES (21:12)
[2021-12-09] MEDS ORDERED: ZOLO50TA PO (21:12)
[2021-12-09] MEDS ORDERED: ZYPR5TAB2 (21:12)
[2021-12-09] MEDS ORDERED: MULT-90 PO (21:12)
[2021-12-09 21:38] LABS: HEMATOCRIT 38.6 % (42.0-52.0); HEMOGLOBIN 12.9 g/dl (13.5-17.5); MEAN CORPUSCULAR HEMOGLOBIN 30.1 pg (27.0-33.0); MEAN CORPUSCULAR HGB CONC 33.4 g/dl (32.0-36.5); MEAN CORPUSCULAR VOLUME 90.2 fl (80.0-96.0); PLATELET COUNT, AUTOMATED 273 10^3/uL (150-450); RED BLOOD COUNT 4.28 10^6/uL (4.30-6.10)
[2021-12-09 22:11] LABS: RSV AMPLIFICATION NEGATIVE (NEGATIVE)
[2021-12-09 22:18] LABS: ACETAMINOPHEN LEVEL < 2.0 UG/ML (10.0-30.0); ALBUMIN 3.8 GM/DL (3.2-5.2); ALT/SGPT 25 U/L (12-78); BILIRUBIN,DIRECT 0.2 MG/DL (0.0-0.2); BILIRUBIN,TOTAL 0.4 MG/DL (0.2-1.0); BLOOD UREA NITROGEN 19 MG/DL (7-18); CALCIUM LEVEL 9.3 MG/DL (8.5-10.1); CARBON DIOXIDE LEVEL 29 MEQ/L (21-32); CHLORIDE LEVEL 106 MEQ/L (98-107); CREATININE FOR GFR 0.62 MG/DL (0.70-1.30); ETHYL ALCOHOL (ETHANOL) < 0.003 % (0.000-0.010); GLOMERULAR FILTRATION RATE > 60.0 (>60); GLUCOSE, FASTING 89 MG/DL (70-100); POTASSIUM SERUM 3.9 MEQ/L (3.5-5.1); SALICYLATE LEVEL < 1.7 MG/DL (5.0-30.0); SODIUM LEVEL 138 MEQ/L (136-145); THYROID STIMULATING HORMONE 0.575 uIU/ML (0.358-3.740); TOTAL PROTEIN 6.8 GM/DL (6.4-8.2)
[2021-12-10 01:03] LABS: AMPHETAMINES LEVEL URINE NEGATIVE (NEGATIVE); BARBITURATES URINE NEGATIVE (NEGATIVE); BENZODIAZEPINES URINE NEGATIVE (NEGATIVE); CANNABINOIDS URINE NEGATIVE (NEGATIVE); COCAINE METABOLITE URINE NEGATIVE (NEGATIVE); METHADONE URINE NEGATIVE (NEGATIVE); OPIATES URINE NEGATIVE (NEGATIVE); PHENCYCLIDINE URINE NEGATIVE (NEGATIVE)
[2021-12-10] MEDS ORDERED: LITHIUM CARBONATE 450 MG **CR** TAB PO SCH (09:00)
[2021-12-10] MEDS ORDERED: FLUTICASONE PROP 0.05% NASAL SPRAY 16 GM (FLONASE) NARES SCH (09:00)
[2021-12-10] MEDS ORDERED: SPIRONOLACTONE 50 MG TAB PO SCH ×2 (09:00→21:00)
[2021-12-10] MEDS ORDERED: MULTIVITAMINS/MINERALS THERAP 1 TAB PO ONE (10:25)
[2021-12-10] MEDS ORDERED: SERTRALINE HCL 25 MG TABLET PO ONE (10:25)
[2021-12-10 10:54] LABS: LITHIUM LEVEL 0.26 MEQ/L (0.60-1.20)
[2021-12-10] MEDS ORDERED: OLAN1TAB20 PO (12:03)
[2021-12-10] MEDS ORDERED: SERO50TA4 PO (12:03)
[2021-12-10] MEDS ORDERED: HOME MED LIST COMPLETE! XX SCH (12:05)
[2021-12-10] MEDS ORDERED: LORazepam 1 MG TAB PO ONE (13:35)
[2021-12-10] MEDS ORDERED: FINASTERIDE 5MG TAB PO SCH (21:00)
[2021-12-10] MEDS ORDERED: OLANZapine 10 MG TAB PO SCH (21:00)
[2021-12-11 00:28] VITALS: BP 101/65
== END 2021-12-11 01:13 ==
LOC: M ED 19:54
DX: T14.91XA Suicide attempt, initial encounter (principal); F31.9 Bipolar disorder, unspecified; F64.9 Gender identity disorder, unspecified; Z79.899 Other long term (current) drug therapy
CPT/HCPCS: 36415; 80048; 80076; 80143; 80178; 80307; 82077; 84443; 85027; 87631; 93005; 99284; S0138

== ENCOUNTER 2022-06-10 08:45 | Emergency (ER) | payer MEDICAID, OTHER ==
[~2022-06-10 08:45] MED LIST changes: +ESTR25VL IM; +FLON1SPR NARES; +LORA1TAB4 PO; +MULT-90 PO; +SERO50TA4 PO; +VITA100093 PO; +ZOLO50TA PO; +ZYPR5TAB2
[2022-06-10 08:46] VITALS: BP 138/83
[2022-06-10] MEDS ORDERED: BACT800T5 PO (23:03)
== END 2022-06-10 09:52 | disposition left against medical advice (07) ==
LOC: M ED 08:45
DX: Z53.21 Procedure and treatment not carried out due to patient leaving prior to being seen by health care provider (principal)

== ENCOUNTER 2022-06-10 15:48 | Emergency (ER) | payer OTHER ==
[2022-06-10] MEDS ORDERED: ONDANSETRON 4MG 2ML VIAL IV ONE (18:45)
[2022-06-10] MEDS ORDERED: MORPHINE 4 MG/ML 1ML VIAL/SYRINGE IV ONE (18:45)
[2022-06-10] MEDS ORDERED: PANTOPRAZOLE 40MG VIAL IV ONE (18:45)
[2022-06-10] MEDS ORDERED: NS 1,000 ML IV ONE (18:45)
[2022-06-10] MEDS ORDERED: DOXYCYCLINE HYCLATE 100MG TABLET PO ONE (19:25)
[2022-06-10] MEDS ORDERED: cefTRIAXone 500MG VIAL (J0696 PER 250MG) IM ONE (19:25)
[2022-06-10] MEDS ORDERED: LIDOCAINE 1% SDV 5ML VIAL DILUENT ONE (19:25)
[2022-06-10] MEDS ORDERED: ACETAMINOPHEN 500 MG TAB PO ONE (19:25)
[2022-06-10 19:47] LABS: BASO % 0.1 % (0.0-1.0); HEMATOCRIT 39.1 % (42.0-52.0); HEMOGLOBIN 12.9 g/dl (13.5-17.5); LYMPH # 1.9 10^3/uL (1.5-5.0); LYMPH % 10.8 % (24.0-44.0); MEAN CORPUSCULAR HEMOGLOBIN 30.5 pg (27.0-33.0); MEAN CORPUSCULAR VOLUME 92.4 fl (80.0-96.0); MONO # 0.8 10^3/uL (0.0-0.8); MONO % 4.4 % (2.0-8.0); NEUTROPHILS % 84.2 % (36.0-66.0); PLATELET COUNT, AUTOMATED 387 10^3/uL (150-450); RED BLOOD COUNT 4.23 10^6/uL (4.30-6.10); WHITE BLOOD COUNT 17.8 10^3/uL (4.0-10.0)
[2022-06-10 20:11] LABS: ALT/SGPT 22 U/L (12-78); BILIRUBIN,DIRECT 0.2 MG/DL (0.0-0.2); BILIRUBIN,TOTAL 0.7 MG/DL (0.2-1.0); BLOOD UREA NITROGEN 10 MG/DL (7-18); CALCIUM LEVEL 9.3 MG/DL (8.5-10.1); CARBON DIOXIDE LEVEL 25 MEQ/L (21-32); CHLORIDE LEVEL 106 MEQ/L (98-107); CREATININE FOR GFR 0.59 MG/DL (0.70-1.30); GLOMERULAR FILTRATION RATE > 60.0 (>60); GLUCOSE, FASTING 95 MG/DL (70-100); LIPASE 105 U/L (73-393); POTASSIUM SERUM 4.1 MEQ/L (3.5-5.1); SODIUM LEVEL 136 MEQ/L (136-145); TOTAL PROTEIN 7.2 GM/DL (6.4-8.2)
[2022-06-10 21:34] VITALS: BP 126/62
[2022-06-10 21:42] LABS: GC DNA AMPLIFICATION NEGATIVE (NEGATIVE)
[2022-06-10] MEDS ORDERED: BACT800T5 PO (23:03)
[2022-06-10] MEDS ORDERED: KETOROLAC 30 MG/ML 1ML VIAL IM ONE (23:20)
== END 2022-06-10 23:32 | disposition home or self-care (01) ==
LOC: M ED 15:48
DX: N45.1 Epididymitis (principal); R11.2 Nausea with vomiting, unspecified; F25.0 Schizoaffective disorder, bipolar type; F90.9 Attention-deficit hyperactivity disorder, unspecified type; F41.9 Anxiety disorder, unspecified; F32.A Depression, unspecified; F17.200 Nicotine dependence, unspecified, uncomplicated; F10.10 Alcohol abuse, uncomplicated; Z79.899 Other long term (current) drug therapy; Z79.52 Long term (current) use of systemic steroids
CPT/HCPCS: 80048; 80076; 81000; 81015; 83605; 83690; 85025; 87086; 87661; 87810; 87850; 93005; 96361; 96372; 96374; 96375; 99284; C9113; J0696; J1885; J2270; J2405

== ENCOUNTER 2022-06-26 09:21 | Emergency (ER) | payer OTHER ==
[~2022-06-26] VITALS: Ht 175.3 cm; Wt 81.2 kg
[~2022-06-26 09:21] MED LIST changes: +BACT800T5 PO
[2022-06-26 09:29] VITALS: BP 127/77
[2022-06-26 10:53] LABS: BASO # 0.1 10^3/uL (0.0-0.2); BASO % 0.9 % (0.0-1.0); EOS # 0.3 10^3/uL (0.0-0.5); EOS % 2.6 % (0.0-3.0); HEMATOCRIT 38.4 % (42.0-52.0); HEMOGLOBIN 12.6 g/dl (13.5-17.5); LYMPH # 1.7 10^3/uL (1.5-5.0); LYMPH % 16.6 % (24.0-44.0); MEAN CORPUSCULAR HEMOGLOBIN 30.4 pg (27.0-33.0); MEAN CORPUSCULAR HGB CONC 32.8 g/dl (32.0-36.5); MEAN CORPUSCULAR VOLUME 92.5 fl (80.0-96.0); MONO # 0.7 10^3/uL (0.0-0.8); MONO % 6.2 % (2.0-8.0); NEUTROPHILS # 7.7 10^3/uL (1.5-8.5); NEUTROPHILS % 73.2 % (36.0-66.0); PLATELET COUNT, AUTOMATED 343 10^3/uL (150-450); RED BLOOD COUNT 4.15 10^6/uL (4.30-6.10); WHITE BLOOD COUNT 10.5 10^3/uL (4.0-10.0)
[2022-06-26] MEDS ORDERED: IBUPROFEN 800 MG TAB PO ONE (11:25)
[2022-06-26 11:47] LABS: BLOOD UREA NITROGEN 20 MG/DL (9-23); CALCIUM LEVEL 8.9 MG/DL (8.5-10.1); CARBON DIOXIDE LEVEL 24 MMOL/L (20-31); CHLORIDE LEVEL 105 MMOL/L (98-107); CREATININE FOR GFR 0.68 MG/DL (0.70-1.30); GLOMERULAR FILTRATION RATE > 60.0 (>60); GLUCOSE, FASTING 95 MG/DL (60-100); POTASSIUM SERUM 4.5 MMOL/L (3.5-5.1); SODIUM LEVEL 137 MMOL/L (136-145)
[2022-06-26] MEDS ORDERED: CIPROFLOXACIN 500MG TABLET PO ONE (12:15)
[2022-06-26 12:16] LABS: GC DNA AMPLIFICATION NEGATIVE (NEGATIVE)
[2022-06-26] MEDS ORDERED: CIPR-249 PO (12:28)
== END 2022-06-26 12:48 | disposition home or self-care (01) ==
LOC: M ED 09:21 → EDBD 09:21 → M ED 12:48
DX: N45.1 Epididymitis (principal); Z79.84 Long term (current) use of oral hypoglycemic drugs; Z79.2 Long term (current) use of antibiotics; Z79.899 Other long term (current) drug therapy; Z79.52 Long term (current) use of systemic steroids

== ENCOUNTER 2023-03-23 14:09 | Emergency (ER) | payer OTHER ==
[~2023-03-23] VITALS: Ht 175.3 cm; Wt 112.0 kg
[2023-03-23 14:09] VITALS: BP 130/74; TEMP 97.5; O2SAT 97
[~2023-03-23 14:09] MED LIST changes: +CIPR-249 PO; +LORA1TAB23 PO; -LORA1TAB4 PO
[2023-03-24] MEDS ORDERED: IBUP200T46 PO (09:01)
[2023-03-24] MEDS ORDERED: HALO5TAB33 (09:01)
[2023-03-24] MEDS ORDERED: LITH300C (09:01)
[2023-03-24] MEDS ORDERED: CONC54TA4 (09:01)
[2023-03-24] MEDS ORDERED: ZOLO100T (09:01)
[2023-03-24] MEDS ORDERED: LURA80TA (09:01)
== END 2023-03-23 19:51 | disposition left against medical advice (07) ==
LOC: M ED 14:09
DX: Z53.21 Procedure and treatment not carried out due to patient leaving prior to being seen by health care provider (principal)

== ENCOUNTER 2023-03-24 08:46 | Emergency (ER) | payer OTHER ==
[~2023-03-24] VITALS: Ht 175.3 cm; Wt 111.0 kg
[2023-03-24] MEDS ORDERED: IBUP200T46 PO (09:01)
[2023-03-24] MEDS ORDERED: HALO5TAB33 (09:01)
[2023-03-24] MEDS ORDERED: ZOLO100T (09:01)
[2023-03-24] MEDS ORDERED: LURA80TA (09:01)
[2023-03-24] MEDS ORDERED: LITH300C (09:01)
[2023-03-24] MEDS ORDERED: CONC54TA4 (09:01)
[2023-03-24 11:18] VITALS: BP 132/81; TEMP 99; O2SAT 97
== END 2023-03-24 11:23 | disposition home or self-care (01) ==
LOC: M ED 08:46
DX: S06.0X0A Concussion without loss of consciousness, initial encounter (principal); S13.4XXA Sprain of ligaments of cervical spine, initial encounter; S30.1XXA Contusion of abdominal wall, initial encounter; V49.50XA Passenger injured in collision with unspecified motor vehicles in traffic accident, initial encounter; F41.9 Anxiety disorder, unspecified; F32.A Depression, unspecified; Z79.810 Long term (current) use of selective estrogen receptor modulators (SERMs); Z79.899 Other long term (current) drug therapy

== ENCOUNTER 2023-09-18 16:15 | Emergency (ER) | payer OTHER ==
[~2023-09-18] VITALS: Ht 175.3 cm; Wt 100.0 kg
[~2023-09-18 16:15] MED LIST changes: +CONC54TA4; +HALO5TAB33; +IBUP200T46 PO; +LITH300C; +LURA80TA; +ZOLO100T
[2023-09-18 16:16] VITALS: TEMP 97.6
[2023-09-18] MEDS ORDERED: KETOROLAC 30 MG/ML 1ML VIAL As Ordered ONE (17:31)
[2023-09-18] MEDS: KETOROLAC 60MG 2ML VIAL IM ONE (17:32)
[2023-09-18] MEDS: BACTRIM 160MG/800MG DS TAB PO ONE (17:50)
[2023-09-18] MEDS ORDERED: BACT800T5 PO (17:50)
[2023-09-18 18:00] VITALS: BP 155/86; O2SAT 97
== END 2023-09-18 18:14 | disposition home or self-care (01) ==
LOC: M ED 16:15
DX: N45.1 Epididymitis (principal); F41.9 Anxiety disorder, unspecified; F33.0 Major depressive disorder, recurrent, mild; F12.10 Cannabis abuse, uncomplicated; Z79.1 Long term (current) use of non-steroidal anti-inflammatories (NSAID); Z79.83 Long term (current) use of bisphosphonates; Z79.899 Other long term (current) drug therapy
CPT/HCPCS: 76870; 93976; 96372; 99284; J1885

== ENCOUNTER 2023-12-30 22:50 | Emergency (ER) | payer OTHER ==
[~2023-12-30] VITALS: Ht 175.3 cm; Wt 107.8 kg
[2023-12-30 22:57] VITALS: BP 164/98; TEMP 97.2; O2SAT 97
== END 2023-12-30 23:31 | disposition left against medical advice (07) ==
LOC: EDBD 22:50 → M ED 22:50
DX: Z53.21 Procedure and treatment not carried out due to patient leaving prior to being seen by health care provider (principal)

== ENCOUNTER 2024-07-05 10:56 | Emergency (ER) | payer OTHER ==
[~2024-07-05] VITALS: Ht 175.3 cm; Wt 113.9 kg
[~2024-07-05 10:56] MED LIST changes: +LITH450T11; +LITH450T11 PO; -LITH45TASA; -LITH45TASA PO; -OLAN20TA14 PO; +OLAN20TA53 PO
[2024-07-05 11:36] VITALS: O2SAT 96
[2024-07-05 13:43] VITALS: BP 135/81; TEMP 97.1; O2SAT 95
[2024-07-06] MEDS ORDERED: DOXY-440 PO (12:27)
[2024-07-06] MEDS ORDERED: VENTAER INH (12:27)
== END 2024-07-05 14:24 | disposition left against medical advice (07) ==
LOC: M ED 10:56 → EDBD 10:56 → M ED 14:24
DX: F90.9 Attention-deficit hyperactivity disorder, unspecified type (principal); F41.9 Anxiety disorder, unspecified; F32.A Depression, unspecified; F17.200 Nicotine dependence, unspecified, uncomplicated; F12.10 Cannabis abuse, uncomplicated; F10.10 Alcohol abuse, uncomplicated; Z79.52 Long term (current) use of systemic steroids; Z79.1 Long term (current) use of non-steroidal anti-inflammatories (NSAID); Z79.899 Other long term (current) drug therapy; Z53.9 Procedure and treatment not carried out, unspecified reason

== ENCOUNTER 2024-07-06 09:35 | Emergency (ER) | payer OTHER ==
[~2024-07-06] VITALS: Ht 175.3 cm; Wt 116.2 kg
[2024-07-06] MEDS: ALBUTEROL SULFATE 2.5MG/0.5ML INH NEB SOLN NEB ONE (11:00)
[2024-07-06 11:11] LABS: BASO # 0.1 10^3/uL (0.0-0.2); BASO % 0.6 % (0.0-1.0); EOS # 0.3 10^3/uL (0.0-0.5); EOS % 2.8 % (0.0-3.0); HEMATOCRIT 39.4 % (42.0-52.0); LYMPH # 2.2 10^3/uL (1.5-5.0); LYMPH % 18.9 % (24.0-44.0); MEAN CORPUSCULAR HEMOGLOBIN 30.5 pg (27.0-33.0); MEAN CORPUSCULAR VOLUME 92.5 fl (80.0-96.0); MONO # 0.8 10^3/uL (0.0-0.8); MONO % 6.5 % (2.0-8.0); NEUTROPHILS # 8.3 10^3/uL (1.5-8.5); NEUTROPHILS % 70.9 % (36.0-66.0); PLATELET COUNT, AUTOMATED 315 10^3/uL (150-450); RED BLOOD COUNT 4.26 10^6/uL (4.30-6.10); WHITE BLOOD COUNT 11.7 10^3/uL (4.0-10.0)
[2024-07-06 11:43] LABS: BLOOD UREA NITROGEN 18 MG/DL (9-23); CALCIUM LEVEL 9.4 MG/DL (8.5-10.1); CARBON DIOXIDE LEVEL 25 MMOL/L (20-31); CHLORIDE LEVEL 107 MMOL/L (98-107); CREATININE FOR GFR 0.84 MG/DL (0.70-1.30); GLOMERULAR FILTRATION RATE > 60.0 (>60); GLUCOSE, FASTING 98 MG/DL (60-100); LITHIUM LEVEL 0.47 MMOL/L (1.0-1.20); POTASSIUM SERUM 4.3 MMOL/L (3.5-5.1); SODIUM LEVEL 139 MMOL/L (136-145)
[2024-07-06 11:47] LABS: FREE T4 1.11 NG/DL (0.89-1.76); THYROID STIMULATING HORMONE 0.683 uIU/ML (0.55-4.78)
[2024-07-06] MEDS ORDERED: VENTAER INH (12:27)
[2024-07-06] MEDS ORDERED: DOXY-440 PO (12:27)
[2024-07-06 12:34] VITALS: BP 107/74; TEMP 97.9; O2SAT 97
== END 2024-07-06 12:42 | disposition home or self-care (01) ==
LOC: EDSEX 09:35 → M ED 09:35 → EDBD 09:35 → M ED 12:42
DX: R53.81 Other malaise (principal); D72.829 Elevated white blood cell count, unspecified; R91.8 Other nonspecific abnormal finding of lung field; F17.200 Nicotine dependence, unspecified, uncomplicated; Z79.52 Long term (current) use of systemic steroids; Z79.899 Other long term (current) drug therapy

== ENCOUNTER 2024-09-28 07:21 | Emergency (ER) | payer OTHER ==
[~2024-09-28] VITALS: Ht 177.8 cm; Wt 118.5 kg
[~2024-09-28 07:21] MED LIST changes: +DOXY-440 PO; +VENTAER INH
[2024-09-28 07:29] VITALS: TEMP 96.4
[2024-09-28] MEDS: ONDANSETRON 4MG 2ML VIAL IV ONE (09:03)
[2024-09-28 09:11] LABS: BASO # 0.1 10^3/uL (0.0-0.2); BASO % 0.3 % (0.0-1.0); EOS # 0.1 10^3/uL (0.0-0.5); EOS % 0.3 % (0.0-3.0); HEMATOCRIT 47.9 % (42.0-52.0); HEMOGLOBIN 15.7 g/dl (13.5-17.5); LYMPH # 0.4 10^3/uL (1.5-5.0); LYMPH % 1.9 % (24.0-44.0); MEAN CORPUSCULAR HEMOGLOBIN 29.5 pg (27.0-33.0); MEAN CORPUSCULAR HGB CONC 32.8 g/dl (32.0-36.5); MONO # 0.7 10^3/uL (0.0-0.8); MONO % 3.2 % (2.0-8.0); NEUTROPHILS # 21.3 10^3/uL (1.5-8.5); NEUTROPHILS % 93.7 % (36.0-66.0); PLATELET COUNT, AUTOMATED 385 10^3/uL (150-450); RED BLOOD COUNT 5.32 10^6/uL (4.30-6.10); WHITE BLOOD COUNT 22.7 10^3/uL (4.0-10.0)
[2024-09-28 09:15] VITALS: BP 138/89
[2024-09-28 09:34] LABS: ALBUMIN 4.1 G/DL (3.2-5.2); ALKALINE PHOSPHATASE 105 U/L (40-129); ALT/SGPT 25 U/L (7.0-40); AST/SGOT 16 U/L (<34); BILIRUBIN,DIRECT 0.2 MG/DL (<0.4); BILIRUBIN,TOTAL 0.7 MG/DL (0.3-1.2); BLOOD UREA NITROGEN 20 MG/DL (9-23); CALCIUM LEVEL 9.6 MG/DL (8.5-10.1); CARBON DIOXIDE LEVEL 25 MMOL/L (20-31); CHLORIDE LEVEL 102 MMOL/L (98-107); CREATININE FOR GFR 0.86 MG/DL (0.70-1.30); GLOMERULAR FILTRATION RATE > 60.0 (>60); GLUCOSE, FASTING 124 MG/DL (60-100); LITHIUM LEVEL 0.27 MMOL/L (1.0-1.20); POTASSIUM SERUM 4.4 MMOL/L (3.5-5.1); SODIUM LEVEL 140 MMOL/L (136-145); TOTAL PROTEIN 7.8 G/DL (5.7-8.2)
[2024-09-28 09:36] VITALS: O2SAT 95
== END 2024-09-28 10:08 | disposition left against medical advice (07) ==
LOC: M ED 07:21
DX: R10.9 Unspecified abdominal pain (principal); R11.2 Nausea with vomiting, unspecified; D72.829 Elevated white blood cell count, unspecified; Z79.52 Long term (current) use of systemic steroids; Z79.899 Other long term (current) drug therapy; Z79.2 Long term (current) use of antibiotics; Z53.9 Procedure and treatment not carried out, unspecified reason
CPT/HCPCS: 80048; 80076; 80178; 85025; 96374; 99284; J2405

== ENCOUNTER 2024-09-28 15:24 | Emergency (ER) | payer OTHER ==
[~2024-09-28] VITALS: Ht 177.8 cm; Wt 118.9 kg
[2024-09-28 15:42] VITALS: BP 132/82; TEMP 98.4; O2SAT 98
== END 2024-09-28 18:57 | disposition left against medical advice (07) ==
LOC: M ED 15:24
DX: Z53.21 Procedure and treatment not carried out due to patient leaving prior to being seen by health care provider (principal)

== ENCOUNTER 2024-10-07 08:17 | Emergency (ER) | payer OTHER ==
[~2024-10-07] VITALS: Ht 177.8 cm; Wt 122.3 kg
[2024-10-07] MEDS ORDERED: LUMA42CA (08:43)
[2024-10-07] MEDS ORDERED: FLUO40CA (08:43)
[2024-10-07] MEDS ORDERED: ESTR1TAB (08:43)
[2024-10-07 09:11] LABS: BASO # 0.1 10^3/uL (0.0-0.2); BASO % 0.7 % (0.0-1.0); EOS # 0.4 10^3/uL (0.0-0.5); HEMATOCRIT 44.2 % (42.0-52.0); LYMPH # 2.7 10^3/uL (1.5-5.0); LYMPH % 22.3 % (24.0-44.0); MEAN CORPUSCULAR HEMOGLOBIN 29.2 pg (27.0-33.0); MEAN CORPUSCULAR HGB CONC 31.7 g/dl (32.0-36.5); MEAN CORPUSCULAR VOLUME 92.3 fl (80.0-96.0); MONO # 0.8 10^3/uL (0.0-0.8); MONO % 6.4 % (2.0-8.0); NEUTROPHILS % 66.8 % (36.0-66.0); PLATELET COUNT, AUTOMATED 421 10^3/uL (150-450); RED BLOOD COUNT 4.79 10^6/uL (4.30-6.10); WHITE BLOOD COUNT 11.9 10^3/uL (4.0-10.0)
[2024-10-07 09:39] LABS: LIPASE 30 U/L (12-53)
[2024-10-07 09:42] LABS: ALBUMIN 3.8 G/DL (3.2-5.2); ALKALINE PHOSPHATASE 99 U/L (40-129); ALT/SGPT 36 U/L (7.0-40); AST/SGOT 19 U/L (<34); BILIRUBIN,DIRECT < 0.1 MG/DL (<0.4); BILIRUBIN,TOTAL 0.4 MG/DL (0.3-1.2); BLOOD UREA NITROGEN 13 MG/DL (9-23); CALCIUM LEVEL 9.6 MG/DL (8.5-10.1); CARBON DIOXIDE LEVEL 27 MMOL/L (20-31); CHLORIDE LEVEL 102 MMOL/L (98-107); CREATININE FOR GFR 0.85 MG/DL (0.70-1.30); GLOMERULAR FILTRATION RATE > 60.0 (>60); GLUCOSE, FASTING 93 MG/DL (60-100); POTASSIUM SERUM 4.3 MMOL/L (3.5-5.1); SODIUM LEVEL 138 MMOL/L (136-145); TOTAL PROTEIN 7.7 G/DL (5.7-8.2)
[2024-10-07] MEDS: ACETAMINOPHEN 500 MG TAB PO ONE (12:02)
[2024-10-07] MEDS ORDERED: ISOVUE-370 76% 100ML VIAL As Ordered ONE (12:07)
[2024-10-07 12:39] LABS: KETONE, URINE AUTO RFX NEGATIVE (NEGATIVE); LEUKOCYTE ESTERASE UR AUTO RFX NEGATIVE (NEGATIVE); MUCUS, URINE RFX SMALL (NEGATIVE); NITRITE, URINE AUTO RFX NEGATIVE (NEGATIVE); RBC, URINE AUTO RFX 1 /HPF (0-3); SQUAM EPITHELIAL CELL UR AURFX 2 /HPF (0-6); WBC, URINE AUTO RFX 0 /HPF (0-3)
[2024-10-07 13:58] VITALS: BP 129/70; TEMP 95.9; O2SAT 96
[2024-10-07 14:04] LABS: Trichomonas vaginalis (AMP) NOT DETECTED (NEGATIVE)
[2024-10-07 14:27] LABS: GC DNA AMPLIFICATION NEGATIVE (NEGATIVE)
[2024-10-07] MEDS: NS (Normal Saline) 0.9% 1,000 ML IV ONE (15:22)
[2024-10-07] MEDS: PROMETHAZINE 25MG/ML 1ML VIAL IV ONE (15:34)
== END 2024-10-07 15:35 | disposition left against medical advice (07) ==
LOC: EDBD 08:17 → M ED 08:17
DX: R10.9 Unspecified abdominal pain (principal); R19.7 Diarrhea, unspecified; N50.819 Testicular pain, unspecified; K76.0 Fatty (change of) liver, not elsewhere classified; J98.11 Atelectasis; F90.9 Attention-deficit hyperactivity disorder, unspecified type; F32.A Depression, unspecified; F41.9 Anxiety disorder, unspecified; F20.9 Schizophrenia, unspecified; F17.200 Nicotine dependence, unspecified, uncomplicated; F12.10 Cannabis abuse, uncomplicated; F10.10 Alcohol abuse, uncomplicated; Z79.52 Long term (current) use of systemic steroids; Z79.899 Other long term (current) drug therapy; Z53.9 Procedure and treatment not carried out, unspecified reason
CPT/HCPCS: 36415; 74177; 76870; 80048; 80076; 81001; 83690; 85025; 87486; 87581; 87633; 87661; 87798; 87810; 87850; 87880; 99284; Q9967

== ENCOUNTER 2025-01-31 22:40 | Emergency (ER) | payer OTHER ==
[~2025-01-31] VITALS: Ht 175.3 cm; Wt 120.7 kg
[~2025-01-31 22:40] MED LIST changes: +ESTR1TAB; +FLUO40CA; -LITH450T11; -LITH450T11 PO; +LITH450T17; +LITH450T17 PO; +LUMA42CA; +OLAN20TA74 PO; -ZYPR20TA PO
[2025-02-01] MEDS ORDERED: HALO5TAB33 PO (00:58)
[2025-02-01 01:09] VITALS: BP 132/85; TEMP 98.1; O2SAT 99
[2025-02-01] MEDS: HALOPERIDOL 5 MG TAB PO ONE (01:11)
== END 2025-02-01 01:14 | disposition home or self-care (01) ==
LOC: M ED 22:40
DX: Z76.0 Encounter for issue of repeat prescription (principal); F31.9 Bipolar disorder, unspecified; F20.9 Schizophrenia, unspecified; Z79.52 Long term (current) use of systemic steroids; Z79.899 Other long term (current) drug therapy

== ENCOUNTER 2025-04-28 16:11 | Inpatient (IN) | payer OTHER ==
[~2025-04-28] VITALS: Ht 175.3 cm; Wt 102.0 kg
[~2025-04-28 16:11] MED LIST changes: +HALO5TAB33 PO; -LUMA42CA; +LUMA42CA4
[2025-04-28 17:17] LABS: PLATELET COUNT, AUTOMATED 358 10^3/uL (150-450)
[2025-04-28] MEDS ORDERED: ESTR20VI2 IM (17:17)
[2025-04-28] MEDS ORDERED: SPIR50TA4 PO (17:30)
[2025-04-28 17:46] LABS: LITHIUM LEVEL < 0.10 MMOL/L (1.0-1.20); SALICYLATE LEVEL < 3.0 MG/DL (<30)
[2025-04-28 17:47] LABS: ALT/SGPT 57 U/L (7.0-40); AST/SGOT 35 U/L (<34); CALCIUM LEVEL 9.8 MG/DL (8.5-10.1); CARBON DIOXIDE LEVEL 22 MMOL/L (20-31); CHLORIDE LEVEL 103 MMOL/L (98-107); CREATININE FOR GFR 0.68 MG/DL (0.70-1.30); GLOMERULAR FILTRATION RATE > 90.0 (>60); POTASSIUM SERUM 3.8 MMOL/L (3.5-5.1); SODIUM LEVEL 138 MMOL/L (136-145)
[2025-04-28 17:48] LABS: ETHYL ALCOHOL (ETHANOL) < 0.003 % (0.000-0.010)
[2025-04-28 18:51] LABS: AMPHETAMINES LEVEL URINE NEGATIVE (NEGATIVE); BARBITURATES URINE NEGATIVE (NEGATIVE); BENZODIAZEPINES URINE NEGATIVE (NEGATIVE); CANNABINOIDS URINE NEGATIVE (NEGATIVE); COCAINE METABOLITE URINE NEGATIVE (NEGATIVE); METHADONE URINE NEGATIVE (NEGATIVE); OPIATES URINE NEGATIVE (NEGATIVE); PHENCYCLIDINE URINE NEGATIVE (NEGATIVE)
[2025-04-29] MEDS: IBUPROFEN 800 MG TAB PO ONE (05:12)
[2025-04-29] MEDS: NICOTINE 14 MG/24 HR TRANSDERMAL TD SCH (09:00)
[2025-04-29] MEDS ORDERED: HOME MED LIST COMPLETE! XX SCH (10:00)
[2025-04-29] MEDS ORDERED: OLANZapine 5 MG TAB PO PRN (11:55)
[2025-04-29] MEDS ORDERED: HALOPERIDOL 5 MG TAB PO PRN (11:55)
[2025-04-29] MEDS ORDERED: MAALOX 30 ML SUSP *UDC PO PRN (11:55)
[2025-04-29] MEDS ORDERED: MOM 30 ML SUSPENSION UDC PO PRN (11:55)
[2025-04-29 14:29] VITALS: BP 137/82; TEMP 96.9; O2SAT 98
[2025-04-29] MEDS: IBUPROFEN 400 MG TAB PO PRN (18:10)
[2025-04-30] MEDS: CARIPRAZINE 3MG CAPSULE PO SCH (09:40)
[2025-04-30] MEDS: FLUoxetine 20 MG CAP PO SCH (10:02)
[2025-05-01] MEDS ORDERED: ONDANSETRON 4MG ORAL DISINTEGRATING TAB PO PRN (12:45)
[2025-05-01] MEDS: EXCEDRIN MIGRAINE TABLET PO PRN (13:24)
[2025-05-02 06:25] VITALS: BP 142/80; TEMP 96.5; O2SAT 98
[2025-05-02] MEDS: SPIRONOLACTONE 50 MG TAB PO SCH ×2 (10:13→20:22)
[2025-05-03] MEDS: ESTRADIOL VALERATE IM SCH (14:28)
[2025-05-03] MEDS: traZODone 50 MG TAB PO PRN (22:55)
[2025-05-04 06:45] VITALS: BP 139/79; TEMP 97; O2SAT 98
[2025-05-04] MEDS: FLUoxetine 20 MG CAP PO SCH (08:13)
[2025-05-04] MEDS: LORazepam 1 MG TAB PO PRN (21:20)
[2025-05-04 21:37] VITALS: BP 140/70; TEMP 97; O2SAT 98
[2025-05-05 06:55] VITALS: BP 122/74; TEMP 96.6; O2SAT 99
[2025-05-06 06:00] VITALS: BP 150/97; TEMP 97.8; O2SAT 99
[2025-05-06] MEDS: CARIPRAZINE 3MG CAPSULE PO ONE (10:46)
[2025-05-06] MEDS: ACETAMINOPHEN 325 MG TAB PO PRN (12:39)
[2025-05-07 06:40] VITALS: BP 117/59; TEMP 98.1; O2SAT 98
[2025-05-07] MEDS: CARIPRAZINE 3MG CAPSULE PO ONE (09:34)
[2025-05-07] MEDS: FLUTICASONE PROPIONATE 0.05% NASAL SPRAY 16 GM NARES SCH (20:35)
[2025-05-08 06:37] VITALS: BP 147/82; TEMP 97.2; O2SAT 100
[2025-05-08] MEDS: CARIPRAZINE 3MG CAPSULE PO SCH (08:16)
[2025-05-09 06:40] VITALS: BP 122/74; TEMP 98; O2SAT 98
[2025-05-09] MEDS ORDERED: FLUTISP NARES (08:09)
[2025-05-09] MEDS ORDERED: FLUO-365 PO (08:09)
[2025-05-09] MEDS ORDERED: VRAY3CAP PO (08:09)
[2025-05-09 08:25] VITALS: BP 135/84
== END 2025-05-09 14:00 | disposition home or self-care (01) | DRG 753 ==
LOC: M ED 16:11 → M ED INP 04-29 11:53 → M PSY 04-29 14:26
PROVIDERS: ADMIT Internal Medicine; ATTEND Internal Medicine
DX: F31.4 Bipolar disorder, current episode depressed, severe, without psychotic features (principal); R45.851 Suicidal ideations; F43.10 Post-traumatic stress disorder, unspecified; F41.9 Anxiety disorder, unspecified; G44.209 Tension-type headache, unspecified, not intractable; D72.829 Elevated white blood cell count, unspecified; Z79.890 Hormone replacement therapy; Z79.899 Other long term (current) drug therapy

== ENCOUNTER 2025-05-15 20:49 | Emergency (ER) | payer OTHER, MEDICAID ==
[~2025-05-15 20:49] MED LIST changes: +ESTR20VI2 IM; +FLUO-365 PO; +FLUTISP NARES; +SPIR50TA4 PO; +VRAY3CAP PO
[2025-05-15 21:02] VITALS: BP 158/105; TEMP 97.7; O2SAT 98
== END 2025-05-16 00:10 | disposition left against medical advice (07) ==
LOC: M ED 20:49
DX: Z53.21 Procedure and treatment not carried out due to patient leaving prior to being seen by health care provider (principal)

== ENCOUNTER 2025-05-16 02:55 | Emergency (ER) | payer OTHER, MEDICAID ==
[2025-05-16 02:56] VITALS: BP 144/80; TEMP 97.8; O2SAT 100
== END 2025-05-16 06:12 | disposition left against medical advice (07) ==
LOC: M ED 02:55
DX: Z53.21 Procedure and treatment not carried out due to patient leaving prior to being seen by health care provider (principal)

== ENCOUNTER 2025-05-19 07:03 | Emergency (ER) | payer MEDICAID, OTHER ==
[2025-05-19 07:36] LABS: PLATELET COUNT, AUTOMATED 419 10^3/uL (150-450)
[2025-05-19 08:04] LABS: ETHYL ALCOHOL (ETHANOL) < 0.003 % (0.000-0.010)
[2025-05-19 08:06] LABS: ALT/SGPT 53 U/L (7.0-40); AST/SGOT 23 U/L (<34); CALCIUM LEVEL 9.4 MG/DL (8.5-10.1); CARBON DIOXIDE LEVEL 22 MMOL/L (20-31); CHLORIDE LEVEL 105 MMOL/L (98-107); CREATININE FOR GFR 0.72 MG/DL (0.70-1.30); GLOMERULAR FILTRATION RATE > 90.0 (>60); POTASSIUM SERUM 3.9 MMOL/L (3.5-5.1); SALICYLATE LEVEL < 3.0 MG/DL (<30); SODIUM LEVEL 140 MMOL/L (136-145)
[2025-05-19 09:45] VITALS: BP 130/80; TEMP 97.7; O2SAT 99
[2025-05-19] MEDS ORDERED: FLUO40CA PO (10:47)
[2025-05-19] MEDS ORDERED: VRAY6CAP PO (10:47)
[2025-05-19] MEDS ORDERED: FLUT15.820 NARES (10:47)
[2025-05-19] MEDS ORDERED: HOME MED LIST COMPLETE! XX SCH (10:50)
== END 2025-05-19 13:03 | disposition home or self-care (01) ==
LOC: M ED 07:03
DX: F32.A Depression, unspecified (principal); F43.10 Post-traumatic stress disorder, unspecified; F41.9 Anxiety disorder, unspecified; F25.9 Schizoaffective disorder, unspecified; Z79.899 Other long term (current) drug therapy

== ENCOUNTER 2025-07-05 12:37 | Emergency (ER) | payer OTHER ==
[~2025-07-05] VITALS: Ht 177.8 cm; Wt 109.5 kg
[~2025-07-05 12:37] MED LIST changes: +FLUO40CA PO; +FLUT15.820 NARES; +VRAY6CAP PO
[2025-07-05 12:43] VITALS: BP 133/75; TEMP 97.1; O2SAT 99
== END 2025-07-05 14:44 | disposition left against medical advice (07) ==
LOC: M ED 12:37
DX: Z53.21 Procedure and treatment not carried out due to patient leaving prior to being seen by health care provider (principal)

== ENCOUNTER 2025-07-06 03:25 | Emergency (ER) | payer OTHER ==
[2025-07-06 03:47] VITALS: BP 123/67; TEMP 97.8; O2SAT 97
[2025-07-07] MEDS ORDERED: D-3-50003 PO (10:47)
== END 2025-07-06 04:08 | disposition left against medical advice (07) ==
LOC: M ED 03:25 → EDBD 03:25 → M ED 04:08
DX: Z53.21 Procedure and treatment not carried out due to patient leaving prior to being seen by health care provider (principal)

== ENCOUNTER 2025-07-06 22:26 | Inpatient (IN) | payer OTHER ==
[~2025-07-06] VITALS: Ht 177.8 cm; Wt 109.8 kg
[2025-07-06] MEDS: IBUPROFEN 600 MG TAB PO ONE (23:37)
[2025-07-06] MEDS: traMADol 50 MG TAB PO ONE (23:37)
[2025-07-06 23:55] LABS: AMPHETAMINES LEVEL URINE NEGATIVE (NEGATIVE); BARBITURATES URINE NEGATIVE (NEGATIVE); BENZODIAZEPINES URINE NEGATIVE (NEGATIVE); COCAINE METABOLITE URINE NEGATIVE (NEGATIVE)
[2025-07-06 23:56] LABS: METHADONE URINE NEGATIVE (NEGATIVE); OPIATES URINE NEGATIVE (NEGATIVE); PHENCYCLIDINE URINE NEGATIVE (NEGATIVE)
[2025-07-06 23:57] LABS: CANNABINOIDS URINE POSITIVE (NEGATIVE)
[2025-07-07 02:50] LABS: PLATELET COUNT, AUTOMATED 391 10^3/uL (150-450)
[2025-07-07 03:17] LABS: ETHYL ALCOHOL (ETHANOL) < 0.003 % (0.000-0.010); SALICYLATE LEVEL < 3.0 MG/DL (<30)
[2025-07-07 03:18] LABS: ALT/SGPT 24 U/L (7.0-40); AST/SGOT 22 U/L (<34); CALCIUM LEVEL 8.8 MG/DL (8.5-10.1); CARBON DIOXIDE LEVEL 26 MMOL/L (20-31); CHLORIDE LEVEL 105 MMOL/L (98-107); CREATININE FOR GFR 0.70 MG/DL (0.70-1.30); GLOMERULAR FILTRATION RATE > 90.0 (>60); POTASSIUM SERUM 4.3 MMOL/L (3.5-5.1); SODIUM LEVEL 142 MMOL/L (136-145)
[2025-07-07 03:46] LABS: HIV 1&2 SCREEN NEGATIVE (NEGATIVE)
[2025-07-07] MEDS ORDERED: MOM 30 ML SUSPENSION UDC PO PRN (05:45)
[2025-07-07] MEDS ORDERED: IBUPROFEN 400 MG TAB PO PRN (05:45)
[2025-07-07] MEDS ORDERED: MAALOX 30 ML SUSP *UDC PO PRN (05:45)
[2025-07-07] MEDS ORDERED: ACETAMINOPHEN 325 MG TAB PO PRN (05:45)
[2025-07-07] MEDS ORDERED: traZODone 50 MG TAB PO PRN (05:45)
[2025-07-07 09:59] VITALS: BP 140/90; TEMP 97.7; O2SAT 98
[2025-07-07 10:05] VITALS: BP 134/84
[2025-07-07] MEDS: LORazepam 1 MG TAB PO PRN (10:33)
[2025-07-07] MEDS ORDERED: D-3-50003 PO (10:47)
[2025-07-07] MEDS ORDERED: HOME MED LIST COMPLETE! XX SCH (10:50)
[2025-07-07] MEDS: HALOPERIDOL 5 MG TAB PO PRN (14:30)
[2025-07-07 15:29] VITALS: BP 127/74; TEMP 97.5; O2SAT 98
[2025-07-07] MEDS: NICOTINE 21 MG/24 HR 1 EA TRANSDERMAL TD SCH (15:35)
[2025-07-07] MEDS: FLUoxetine 20 MG CAP PO SCH (15:35)
[2025-07-07] MEDS: VITAMIN D 1,000 INTERNATIONAL UNITS TABLET PO SCH (15:36)
[2025-07-07] MEDS: SPIRONOLACTONE 50 MG TAB PO SCH (21:30)
[2025-07-07] MEDS: FLUTICASONE PROPIONATE 0.05% NASAL SPRAY 16 GM NARES SCH (21:31)
[2025-07-08 08:21] VITALS: BP 119/68
[2025-07-08 08:22] VITALS: BP 119/68
[2025-07-08] MEDS: SPIRONOLACTONE 50 MG TAB PO SCH (08:22)
[2025-07-08] MEDS ORDERED: NICOTINE 21 MG/24 HR 1 EA TRANSDERMAL TD SCH (09:00)
[2025-07-08] MEDS ORDERED: FLUoxetine 20 MG CAP PO SCH (09:00)
[2025-07-08 12:19] LABS: IRON (FE) 71.0 UG/DL (65-175); PERCENT SATURATION 20.6 % (19.7-50.0)
[2025-07-08 12:21] LABS: VITAMIN B12 LEVEL 500.0 PG/ML (211-911)
[2025-07-08] MEDS ORDERED: TRAZ-252 PO (12:31)
[2025-07-08] MEDS ORDERED: FLUO-365 PO (12:31)
[2025-07-08] MEDS ORDERED: OLAN2.5T53 PO (12:31)
[2025-07-09] MEDS ORDERED: FLUZONE VACCINE TRI PF(25-26) 0.5ML SYRINGE IM.IMMUN ONE (09:00)
== END 2025-07-08 14:54 | disposition home or self-care (01) | DRG 753 ==
LOC: M ED 22:26 → M ED INP 07-07 05:45 → M PSY 07-07 09:08
PROVIDERS: ADMIT Psychiatry & Neurology Neurology; ATTEND Psychiatry & Neurology Neurology
DX: F31.32 Bipolar disorder, current episode depressed, moderate (principal); R45.850 Homicidal ideations; R45.851 Suicidal ideations; F41.0 Panic disorder [episodic paroxysmal anxiety]; F60.3 Borderline personality disorder; F90.9 Attention-deficit hyperactivity disorder, unspecified type; F43.10 Post-traumatic stress disorder, unspecified; F64.0 Transsexualism; D64.9 Anemia, unspecified; D72.829 Elevated white blood cell count, unspecified; E55.9 Vitamin D deficiency, unspecified; Z79.899 Other long term (current) drug therapy

== ENCOUNTER 2025-07-14 02:10 | Emergency (ER) | payer OTHER ==
[~2025-07-14] VITALS: Ht 177.8 cm; Wt 115.0 kg
[~2025-07-14 02:10] MED LIST changes: +D-3-50003 PO; +OLAN2.5T53 PO; +TRAZ-252 PO
[2025-07-14 02:25] VITALS: BP 125/70; TEMP 98.3; O2SAT 98
[2025-07-14] MEDS ORDERED: OLAN2.5T53 PO (02:55)
== END 2025-07-14 03:30 | disposition home or self-care (01) ==
LOC: M ED 02:10
DX: R22.43 Localized swelling, mass and lump, lower limb, bilateral (principal); Z76.0 Encounter for issue of repeat prescription; F41.9 Anxiety disorder, unspecified; F32.A Depression, unspecified; F12.10 Cannabis abuse, uncomplicated; F10.10 Alcohol abuse, uncomplicated; Z79.899 Other long term (current) drug therapy

== ENCOUNTER 2025-07-18 15:31 | Emergency (ER) | payer OTHER ==
[2025-07-18 15:53] VITALS: BP 120/77; TEMP 97.8; O2SAT 98
== END 2025-07-18 15:53 | disposition left against medical advice (07) ==
LOC: M ED 15:31 → EDBD 15:31 → M ED 15:53
DX: Z53.21 Procedure and treatment not carried out due to patient leaving prior to being seen by health care provider (principal)

== ENCOUNTER 2025-07-27 05:28 | Emergency (ER) | payer OTHER ==
[~2025-07-27] VITALS: Ht 177.8 cm; Wt 118.5 kg
[2025-07-27 05:32] VITALS: BP 137/68; TEMP 97.1; O2SAT 98
== END 2025-07-27 05:55 | disposition left against medical advice (07) ==
LOC: M ED 05:28 → EDBD 05:28 → M ED 05:55
DX: Z53.21 Procedure and treatment not carried out due to patient leaving prior to being seen by health care provider (principal)

== ENCOUNTER 2025-07-27 14:46 | Emergency (ER) | payer OTHER ==
[~2025-07-27] VITALS: Ht 177.8 cm; Wt 115.1 kg
[2025-07-27 14:50] VITALS: BP 124/64; O2SAT 99
[2025-07-27 14:58] VITALS: TEMP 96.4
== END 2025-07-27 15:50 | disposition left against medical advice (07) ==
LOC: M ED 14:46
DX: Z53.21 Procedure and treatment not carried out due to patient leaving prior to being seen by health care provider (principal)

== ENCOUNTER 2025-07-28 19:40 | Emergency (ER) | payer OTHER | END 2025-07-28 20:04 | disposition left against medical advice (07) | LOC: M ED 19:54 | DX: Z53.21 Procedure and treatment not carried out due to patient leaving prior to being seen by health care provider (principal) ==